=== PATIENT | female | born 1965 | race Two or more races ===

== ENCOUNTER 2023-06-08 08:26 | Outpatient (CLI) | payer OTHER, SELFPAY ==
--- NOTE | ~2023-06-08 | XR_ITS ---
EXAMINATION: XR thoracic spine 3V DATE: 06/08/2023 08:59 INDICATION: Chronic back pain. TECHNIQUE: 3 views of thoracic spine were obtained. COMPARISON: None. FINDINGS: There is 7 degrees levocurvature of thoracic spine. Vertebral body heights are normal. Ther e is mildly decreased disc height at multiple levels in mid thoracic spine. There are endplate osteop hytes at most levels. IMPRESSION: 1. Mild thoracic spondylosis. Reviewed, dictated and finalized at location E.
--- NOTE | ~2023-06-08 | XR_ITS ---
EXAMINATION: XR lumbar spine 2-3V DATE: 06/08/2023 08:59 INDICATION: Chronic back pain. TECHNIQUE: 3 views of lumbar spine were obtained. COMPARISON: None. FINDINGS: Bone alignment is normal. Vertebral body heights are normal. There is mildly decreased disc height at L1-L2, L2-L3, L4-L5, and L5-S1. There is multilevel facet joint osteoarthritis, severe in lower lumbar spine. IMPRESSION: 1. Mild lumbar spondylosis. Reviewed, dictated and finalized at location E. IMPRESSION: 1. Mild lumbar spondylosis.
--- NOTE | ~2023-06-08 | XR_ITS ---
EXAMINATION: XR cervical spine 4-5V DATE: 06/08/2023 08:59 INDICATION: Chronic back pain. TECHNIQUE: 4 views of cervical spine on 5 radiographs were obtained. COMPARISON: Cervical spine radiographs 05/04/2016 FINDINGS: There is mild kyphosis of lower cervical spine. There is 8 degrees levocurvature of cervico thoracic spine. Vertebral body heights are normal. There is mildly decreased disc height at C4-C5 and moderately decreased disc height at C5-C6 and C6-C7. There is multilevel uncovertebral joint osteoar thritis, severe on the left at C5-C6 and C6-C7. There is multilevel mild facet joint osteoarthritis. 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 There is mild central canal stenosis at C5-C6 and C6-C7. No prevertebral soft tissue swelling. IMPRESSION: 1. Moderate cervical spondylosis. Reviewed, dictated and finalized at location E.
== END 2023-06-08 08:27 | disposition home or self-care (01) ==
PROVIDERS: PCP Emergency Medicine; Visit Provider Emergency Medicine
DX: M43.04 Spondylolysis, thoracic region (principal); M43.06 Spondylolysis, lumbar region; M43.02 Spondylolysis, cervical region
CPT/HCPCS: 72050; 72072; 72100

== ENCOUNTER 2023-11-14 12:00 | Emergency (ER) | payer OTHER, SELFPAY ==
[2023-11-14 12:20] VITALS: BP 120/77; PULSE 81; RESP 16; TEMP 36.8; O2SAT 98
--- NOTE | 2023-11-14 12:41 | ED.ALLEREA ---
HPI - Allergic Reaction General Chief complaint: Allergic Reaction Stated complaint: Allergic Reaction Time Seen by Provider: 11/14/23 12:01 Source: patient Mode of arrival: ambulatory Limitations: no limitations History of Present Illness HPI narrative: Patient is a 58-year-old female who presents with rash to upper extremities and face since Sunday. Patient recently garden which was new. Denies any shortness of breath, facial swelling or throat swelling. Has been taking benadryl with no relief.. Related Data Home Medications Medication Instructions Recorded Confirmed ergocalciferol (vitamin D2) 1,250 1,250 mcg PO WEEKLY 11/14/23 11/14/23 mcg (50,000 unit) capsule hydrochlorothiazide 25 mg tablet 25 mg PO DAILY 11/14/23 11/14/23 losartan 100 mg tablet 100 mg PO DAILY 11/14/23 11/14/23 metoprolol tartrate 25 mg tablet 25 mg PO DAILY 11/14/23 11/14/23 simvastatin 20 mg tablet 20 mg PO HS 11/14/23 11/14/23 tizanidine 4 mg tablet 4 mg PO HS 11/14/23 11/14/23 Allergies Allergy/AdvReac Type Severity Reaction Status Date / Time No Known Allergies Allergy Verified 11/14/23 12:23 Review of Systems Review of Systems: All systems reviewed & are unremarkable except as noted in HPI and below Constitutional: Constitutional: Denies body ache(s), Denies chills, Denies fatigue, Denies fever(s), Denies headache(s), Denies malaise and Denies weakness Eyes: Eyes: Denies blurry vision, Denies irritation and Denies loss of vision ENT: Denies otalgia, Denies headache(s), Denies nasal discharge, Denies sinus pain and Denies sore throat Cardiovascular: Cardiovascular: Denies chest pain, Denies irregular heart rhythm and Denies dyspnea Respiratory: Respiratory: Denies dyspnea Gastrointestinal: Gastrointestinal: Denies abdominal pain, Denies melena, Denies hematochezia, Denies diarrhea, Denies nausea and Denies vomiting Musculoskeletal: Musculoskeletal: Denies back pain, Denies myalgias and Denies arthralgias Integumentary/Breasts: Skin/Breast: Reports pruritus and Reports rash Neurologic: Denies headache(s), Denies loss of vision and Denies weakness Psychiatric: Psychiatric: Reports no additional psychiatric complaints Endocrine: Endocrine: Denies fatigue PMFSH Comments At time of signature, agree with nursing past medical, surgical, social and family history. There is no relevant family history pertinent to the presenting complaint. Exam Const: General: cooperative, healthy appearing, comfortable, no acute distress and well nourished Nutritional Appearance: well nourished Orientation/consciousness: patient oriented x3 Limitations: no limitations HENMT: Head: normal to inspection, normocephalic and atraumatic Ears: hearing grossly normal bilaterally and external ears normal Face/Nose/Sinus: Normal external nose present, normal facial exam and face symmetric Face and sinus: normal facial exam and face symmetric Mouth: Yes lip normal Eyes: General: appearance normal, both eyes and all related structures Alignment and Position: alignment normal and position normal Periorbital: periorbital findings normal Eyelids: eyelids normal Pupils: Equal, round and reactive pupils present EOM: EOMs intact bilaterally Neck: Neck: normal visual inspection, full ROM and supple Chest: Chest palpation & inspection: normal inspection of the chest Resp: Effort & Inspection: normal respiratory effort and able to speak in complete sentences Auscultation: clear to auscultation bilaterally Cardio: Rate: regular rate Rhythm: regular rhythm Heart sounds: S1 normal heart sound present and S2 normal heart sound present GI: Inspection: normal to inspection Skin: General skin exam: normal color and no rashes or lesions noted Rashes: rashes noted bilateral arm borders sharp, color red and surface erythematous and warm; fluctuant not assessed and nontender, urticaria face borders sharp, color red and surface erythematous and warm; fluctuant no
== END 2023-11-14 12:55 | disposition home or self-care (01) ==
PROVIDERS: Emergency Provider Nurse Practitioner Family; PCP Emergency Medicine
DX: L23.7 Allergic contact dermatitis due to plants, except food (principal); E78.00 Pure hypercholesterolemia, unspecified; I10 Essential (primary) hypertension
CPT/HCPCS: 99213; G0463